=== PATIENT | male | born 2000 | race Caucasian/White ===

== ENCOUNTER 2022-01-21 17:59 | Emergency (ER) | payer OTHER, SELFPAY ==
[2022-01-21] MEDS ORDERED: Sodium Chloride 0.9% 1,000 ML ONE (18:47)
== END 2022-01-21 20:06 | disposition home or self-care (01) ==
LOC: MADERS 17:59
DX: E86.0 Dehydration (principal); R51.9 Headache, unspecified
CPT/HCPCS: 96360; J7050